=== PATIENT | female | born 1950 | race Caucasian/White ===

== ENCOUNTER 2023-09-09 15:56 | Emergency (ER) | payer MEDICARE, OTHER, SELFPAY ==
[2023-09-09 15:57] VITALS: BP 140/74; PULSE 79; RESP 16; TEMP 36.4; O2SAT 100; BMI 33.7
--- OUTSIDE RECORDS SUMMARY | 2023-09-09 16:33 | XMS RPT_ITS | CCD ---
Author Name Unknown Address [address] [place] [address] Organization [facility] Care Team Providers Care Licensed Psychologist Name Role Phone ELIEZER KELLEY MD Unavailable Unavailable ELIEZER KELLEY MD Unavailable Unavailable ELIEZER KELLEY MD Unavailable Unavailable ELIEZER KELLEY MD Primary Care Unavailable ELIEZER KELLEY MD Consulting Unavailable ELIEZER KELLEY MD Attending Unavailable ELIEZER KELLEY MD Admitting Unavailable PROVIDER, UNKNOWN Consulting Unavailable PROVIDER, UNKNOWN Consulting Unavailable PROVIDER, UNKNOWN Consulting Unavailable ELIEZER KELLEY MD Primary Care Unavailable ELIEZER KELLEY MD Consulting Unavailable ELIEZER KELLEY MD Attending Unavailable ELIEZER KELLEY MD Admitting Unavailable PROVIDER, UNKNOWN Consulting Unavailable PROVIDER, UNKNOWN Consulting Unavailable PROVIDER, UNKNOWN Consulting Unavailable ELIEZER KELLEY MD Primary Care Unavailable ELIEZER KELLEY MD Consulting Unavailable ELIEZER KELLEY MD Attending Unavailable ELIEZER KELLEY MD Admitting Unavailable PROVIDER, UNKNOWN Consulting Unavailable PROVIDER, UNKNOWN Consulting Unavailable PROVIDER, UNKNOWN Consulting Unavailable ELIEZER KELLEY MD Consulting Unavailable ELIEZER KELLEY MD Attending Unavailable ELIEZER KELLEY MD Admitting Unavailable ELIEZER KELLEY MD Primary Care Unavailable PROVIDER, UNKNOWN Consulting Unavailable PROVIDER, UNKNOWN Consulting Unavailable PROVIDER, UNKNOWN Consulting Unavailable ELIEZER KELLEY MD Primary Care Unavailable ELIEZER KELLEY MD Consulting Unavailable ELIEZER KELLEY MD Attending Unavailable ELIEZER KELLEY MD Admitting Unavailable PROVIDER, UNKNOWN Consulting Unavailable PROVIDER, UNKNOWN Consulting Unavailable PROVIDER, UNKNOWN Consulting Unavailable Allergies Allergy Classification Reported Allergen(s) Allergy Type Date of Onset Reaction(s) Facility (1 source) Codeine Drug Allergy [facility] Repository Problems Problem Classification Problem Date Documented Da te Episodic/Chronic Diabetes mellitus with complications (3 sources) Type 2 diabetes mellitus with hyperglycemia; Translations: [Type 2 diabetes mellitus with hyperglycemia] Onset: 05-23-2023 Chronic Diabetes mellitus without complication (1 source) Type 2 diabetes mellitus without complications; Translations: [Type 2 diabetes mellitus without complications] Onset: 03-13-2017 Chronic Results Test Name Value Interpretation Reference Range Facil ity Encounters Encounter Date Encounter Type Care Provider Facility Start: 08-13-2023 ambulatory ELIEZER VERMA SHANNAN [facility] Start: 07-28-2023 End: 07-28-2023 ambulatory ELIEZER VERMA [facility] Start: 05-23-2023 End: 05-23-2023 ambulatory ELIEZER VERMA [facility] Start: 02-13-2023 End: 02-13-2023 ambulatory ELIEZER VERMA [facility] Start: 01-16-2023 ambulatory ELIEZER VERMA [facility] Start: 03-13-2017 End: 03-13-2017 [facility] ELIEZER [facility] Payers Date Payer Category Payer Unknown [id number] 1950 Unknown [id number] 1950 Unknown [id number] 1950 Unknown [id number] [id number] 1950 Unknown [id number] [id number] Medicaid [id number] Medicare [id number] Summary Purpose Family History No Family History Records FoundNo Family History Records FoundNo Family History Records FoundNo Family History Records Found Advance Directives No Advanced Directives Records FoundNo Advanced Directives Records FoundNo Advanced Directives Records FoundNo Advanced Directives Records Found Additional Source Comments INFORMATION SOURCE (unrecogn ized section and content) DATE CREATED AUTHOR AUTHOR'S ORGANIZ ATION 05/29/2021 [facility] DATE CREATED AUTHOR AUTHOR'S RONNI ATION 05/26/2023 [facility] DATE CREATED AUTHOR AUTHOR'S ORGANIZ ATION 08/13/[address] [facility] FOR RECORDS PERTAINING TO PATIENTS WHO ARE OR HAVE BEEN ENROLLED IN A CHEMICAL DEPENDENCY/SUBSTANCEABUSE PROGRAM, SOME INFORMATION MAY BE OMITTED. This clinical summary was aggregated from multiple sources. Caution should be exercised in using it in the provision of clinical care. This summary normalizes information from multiple sources, and as a consequence, information in this document may materially change the coding, format and clinical context of patient data. In addition, data may be omitted in some cases. CLINICAL DECISIONS SHOULD BE BASED ON THE PRIMARY CLINICAL RECORDS. [facility] [employer] provides no warranty or guarantee of the accuracy or completeness of information in this document.
--- NOTE | 2023-09-09 16:41 | EDS_ITS ---
HPI HPI - GI History of Present Illness Chief Complaint: Constipation Informant: patient Narrative Narrative: Patient is a 73-year-old female with history of diabetes mellitus and multiple abdominal surgeries presenting with constipation. Patient that she has not had a normal bowel movement in the past 3 weeks. She states she has been taking MiraLAX and got a clear liquid diet and is now only passing small squiggles of stool. She is in the past 2 days she has had no stool output. She has some mild discomfort left lower quadrant denies any send abdominal pain. Denies any nausea or vomiting. States overall she feels well. No she has had ongoing issues with urinary incontinence and in 1997 had pelvic floor surgery. Denies any fever or chills. Denies any black or blood in her stool. Feels that she is having to strain even have a small bowel movement. No other complaints or concerns at this time. [facility] Medical History (Updated 09/09/23 @ 19:[address] Loly Tolentino, DO) Anxiety Diabetes High cholesterol Home Medications citalopram 20 mg tablet 20 mg PO DAILY 06/09/16 [History Last Taken Unknown] glyburide micronized 1.5 mg tablet 2 mg PO DAILY 06/09/16 [History Last Taken Unknown] lansoprazole 15 mg capsule,delayed release (Prevacid) 15 mg PO DAILY PRN Indigestion 06/09/16 [History Last Taken Unknown] metformin 1,000 mg tablet 1,000 mg PO BIDCM 06/09/16 [History Last Taken Unknown] hydrocodone-acetaminophen 5-325mg 5mg-325mg 1 tab PO Q6H PRN PRN Pain ##15 06/12/16 [Rx Last Taken Unknown] lactulose 10 gram/15 mL (15 mL) oral solution 15 ml PO DAILY PRN constipation #600 mL 09/09/23 [Rx Last Taken Unknown] Allergy/AdvReac Type Severity Reaction Status Date / Time No Known Allergies Allergy Verified 09/09/23 15:58 Social History Smoking Status: Never smoker ROS ROS ED Constitutional Constitutional ED: Denies chills or fever(s) Respiratory/Chest Respiratory/Chest: Denies cough Gastrointestinal Gastrointestinal: Reports constipation; Denies abdominal pain, diarrhea, nausea or vomiting Genitourinary Genitourinary ED: Denies dysuria Musculoskeletal Musculoskeletal: Denies arthralgias or myalgias Integumentary Denies rash Neurologic Neurologic: Denies headache(s) EXAM Physical Exam Const Vital Signs: 09/09/23 15:57 09/09/23 17:56 Temperature 97.6 F L Temperature Source Temporal Pulse Rate 79 64 Respiratory Rate 16 18 Blood Pressure 140/74 H 137/58 H Blood Pressure Mean 96 84 Pulse Ox 100 96 Oxygen Delivery Method Room Air Room Air Positive well nourished and well developed General Appearance ED: well developed and NAD; Negative for pallor HEENT Reports moist mucous membranes Eyes PERRL Neck supple Resp normal respiratory effort and clear to auscultation bilaterally Cardio regular rate and regular rhythm GI non-tender and non-distended GI Narrative: No significant stool in the rectal vault. Mild brown stool noted on glove Inspection: Negative for abdominal distention Auscultation: normoactive bowel sounds Palpation: soft; Negative for tender or guarding Back/Spine no CVA tenderness Extremity full ROM General Extremety ED: Negative for edema General Extremity: Negative for edema Neuro Sensorium / Orientation: alert, oriented to person, oriented to place and oriented to time Motor Exam: Negative for general weakness Psych mental status grossly normal and thought process normal Skin General Skin Exam: Negative for jaundice or pallor Lesions: no lesions Rashes: no rashes MDM MDM MDM Narrative Medical decision making narrative: Patient is evaluated for constipation that seems to be worsening over the past 3 weeks. She has tried MiraLAX multiple times a day and top of a liquid diet with no significant improvement. She is nontoxic-appearing and otherwise asymptomatic. Does not have findings really consistent with a small bowel obstruction however she does go on to report some mild left lower quadrant pain when she strains. She does have a history of pelvic floor weakness and has had prior bladder sling and what sounds like a cystocele/rectocele. Bladder scan is performed to rule out acute urinary retention as a contributing cause to her difficulty with her bowel movements. This only shows 40 cc of urine is not consistent with urinary retention. She does not have a significant stool in the rectal vault and given her surgical history will obtain a CT to evaluate for CT of the abdomen and pelvis does not show any acute process. Abdomen remains soft and nontender. Does have increased stool in the right side of her colon as well as the transverse colon. Will place the patient on lactulose and give her referral for outpatient GI and surgery follow-up. She is agreeable this plan of care. Given return precautions including vomiting, worsening abdominal pain or develop fever. As patient is otherwise asymptomatic with no systemic symptoms, normal vital signs and no nausea or vomiting do not think she requires lab work at this time. Patient comfortable with this plan of care. Radiography Diagnostic Testing: Clinical Impression(s) from Imaging Studies Abdomen/Pelvis CT 09/09/23 17:08 IMPRESSION: No renal or ureteral stone. Electronically Signed: Casey Villegas MD at 18:48 EST , Discharge Plan Triage Chief Complaint: Constipation ED Provider: Loly Tolentino Dx/Rx/DC Orders Clinical Impression: Constipation Instructions: ED Constipation (Adult) Prescriptions: New lactulose 10 gram/15 mL (15 mL) solution 15 ml PO DAILY PRN (Reason: constipation) Qty: 600 0RF No Action glyburide micronized 1.5 MG tablet 2 mg PO DAILY citalopram 20 MG tablet 20 mg PO DAILY metformin 1,000 MG tablet 1,000 mg PO BIDCM lansoprazole [Prevacid] 15 MG capsule 15 mg PO DAILY PRN (Reason: Indigestion) hydrocodone-acetaminophen 1 TABLET tablet 1 tab PO Q6H PRN PRN (Reason: Pain) Qty: 15 0RF Primary Care Provider: Rio Rodgers Referrals: Cyrus Spencer MD [Med Staff - Active Staff] - As soon as possible Teddy Huddleston DO [Med Staff - Active Staff] - As soon as possible Rio Rodgers MD [Primary Care Provider] - Disposition Disposition: Home, Self Care Discharge Date/Time: 09/09/23 19:46
--- NOTE | 2023-09-09 17:08 | CT_ITS ---
STUDY: CT ABDOMEN AND PELVIS WITHOUT CONTRAST REASON FOR EXAM: Female, 73 years old. constipation, LLQ abd pain RADIATION DOSAGE (If Supplied By Facility): CTDIvol = ( 19.81 ) mGy, DLP = ( 989.81 ) mGycm TECHNIQUE: Transaxial images were obtained from the dome of the diaphragm to the symphysis pubis without oral contrast, and without intravenous contrast. Sagittal and coronal images were reconstructed. Individualized dose optimization techniques were used for this CT. COMPARISON: None. FINDINGS: The visualized lung bases are unremarkable. The visualized portions of the heart are within normal limits. Normal liver. Normal gallbladder and extrahepatic biliary system. Normal spleen. Normal pancreas. Normal bilateral adrenal glands. Normal right kidney. Normal left kidney. Normal visualized stomach. Normal small intestine. Normal colon. There is non-visualization of the appendix. Normal abdominal aorta. Normal inferior vena cava. Normal retroperitoneum. Normal urinary bladder. Normal abdominal wall. Mild levoscoliosis lumbar spine with degenerative disc disease. CT/Abdomen/Pelvis without Cont IMPRESSION: No renal or ureteral stone. Electronically Signed: Casey Villegas MD at 18:48 EST ,
[2023-09-09 17:56] VITALS: BP 137/58; PULSE 64; RESP 18; O2SAT 96
== END 2023-09-09 19:46 | disposition home or self-care (01) ==
PROVIDERS: Emergency Provider Emergency Medicine; PCP Internal Medicine Infectious Disease; Visit Provider Emergency Medicine
DX: K59.00 Constipation, unspecified (principal); E11.9 Type 2 diabetes mellitus without complications; E78.00 Pure hypercholesterolemia, unspecified; F41.9 Anxiety disorder, unspecified; Z79.899 Other long term (current) drug therapy; Z79.84 Long term (current) use of oral hypoglycemic drugs
CPT/HCPCS: 74176; 99282